=== PATIENT | male | born 1975 | race Caucasian/White ===

== ENCOUNTER 2022-11-06 19:51 | Inpatient (IN) | payer OTHER, SELFPAY ==
--- OUTSIDE RECORDS SUMMARY | 2022-11-06 19:54 | XMS_ITS | Continuity of Care Document ---
:1975 Author Organization [facility] Address [address] [place] [address]- Care Team Providers Name Role Phone Not on Staff, PCP Primary Care Physician Unavailable [place] [facility] [place]/22 [facility] [address] [place] [address]- Encounter Diagnosis Ingestion of unknown drug (Final) - 07/23/22 Suicide attempt (Final) - 07/23/22 Ingestion of unknown drug (Final) - 07/25/22 Suicide attempt (Final) - 07/25/22 Discharge Disposition: Transfer to [facility] Facility Attending Physician: Judy Carvajal MD Admitting Physician: Masood Solares MD Referring Physician: Not on Staff, Referring MD Allergies, Adverse Reactions, Alerts Substance Reaction Severity Status amoxicillin Active sulfADIAZINE Active Medications No Known Medications Problem List Condition Effective Dates Status Health Status Informant Major depressive disorder(Confirmed) Active Personality disorder(Confirmed) Active Suicidal behavior with attempted Active self-injury(Confirmed) Results Radiology Reports Exam Date Time Procedure Performing Provider Status 07/30/22 1:37 PM Knee 3 Views Left Alisha Richardson; Gustavo (Veri fied) Notes:(Knee 3 Views Left) Reason For Exam: PainRESULT: Knee 3 Views Left Left knee 3 views dated July 30, 2022. No prior studies are available. HISTORY: Pain. FINDINGS: This examination shows no evidence of fracture or dislocation. Joint spaces are well preserved. No joint effusion is seen. IMPRESSION: Degenerative changes. No evidence of fracture or dislocation. Examination 95[address]. Thank you for allowing me to participate in the care of this patient. WSN: [id number] Ordering Physician: Judy Carvajal Dictated By: Ramiro Moreau MD Dictated Date/Time: 07/30/22 1:49 pm Reviewed By: Ramiro Moreau MD Signed By: Ramiro Mroeau MD Signed Date/Time: 07/30/22 1:49 pm Transcribed By: GOVIND Transcribed Date/Time: 07/30/22 1:49 pm Vital Signs Most recent to oldest [Reference 1 2 3 Range]: Oxygen Saturation [94-100 %] 100 % 95 % 98 % (07/31/22 7:00 AM) (07/31/22 12:27 AM) (07/30/22 8:16 PM) Pulse Rate [55-90 bpm] 103 bpm 56 bpm 64 bpm *H* (07/31/22 12:27 AM) (07/30/22 8:16 P M) (07/31/22 7:00 AM) Blood Pressure [90-138/55-84 mm 143/92 mm Hg 138/89 mm Hg 129/95 mm Hg Hg] *H* (07/31/22 12:27 AM) (07/30/22 8:16 P M) (07/31/22 7:00 AM) Respiratory Rate [16-30 br/min] 18 br/min 18 br/min 20 br/min (07/31/22 7:00 AM) (07/31/22 12:27 AM) (07/30/22 8:16 PM) Temperature [96.8-100.4 DegF] 98.1 DegF 97.4 DegF 97 .9 DegF (07/31/22 7:00 AM) (07/31/22 12:27 AM) (07/30/22 8:16 PM) Mode of Delivery (Oxygen) Room air Room air Room a ir (07/31/22 7:00 AM) (07/31/22 12:27 AM) (07/30/22 8:16 PM) Blood pressure sites Arm, left Arm, right Arm, left (07/31/22 7:00 AM) (07/31/22 12:27 AM) (07/30/22 8:16 PM) Temperature Route Oral Oral Oral (07/31/22 7:00 AM) (07/31/22 12:27 AM) (07/30/22 8:16 PM) Social History Social History Type Response Smoking Status Never (less than 100 in life time) entered on: 09/30/19 Sex Male Note [facility] , CIS S: TRANSCRIBE Ramiro Moreau MD: VERIFY Event Display: Result: Authored Date: [id number] Left knee 3 views dated July 30, 2022. No prior studies are available. HISTORY: Pain. FINDINGS: This examination shows no evidence of fracture or dislocation. Joint spaces are well preserved. No joint effusion is seen. IMPRESSION: Degenerative changes. No evidence of fracture or dislocation. Examination [id number]. Thank you for allowing me to participate in the care of this patient. WSN: [id number] Ordering Physician: Judy Carvajal Dictated By: Ramiro Moreau MD Dictated Date/Time: 07/30/22 1:49 pm Reviewed By: Ramiro Moreau MD Signed By: Ramiro Moreau MD Signed Date/Time: 07/30/22 1:49 pm Transcribed By: GOVIND Transcribed Date/Time: 07/30/22 1:49 pm Care Team PersonnelName: Not on Staff, PCP
--- OUTSIDE RECORDS SUMMARY | 2022-11-06 19:54 | XMS_ITS | Continuity of Care Document ---
:1975 Author Organization [facility] Address [address] [place] [address]- Care Team Providers Name Role Phone Not on Staff, PCP Primary Care Physician Unavailable Encounter [facility] [place] Date(s): 01/07/20 - 01/11/20 [facility] [address] [place] [address]- [facility] Discharge Disposition: A-D/C Home Attending Physician: Carolyn Gaines MD Admitting Physician: Carolyn Gaines MD Referring Physician: Not on Staff, Referring MD Allergies, Adverse Reactions, Alerts Substance Reaction Severity Status amoxicillin Active sulfADIAZINE Active Medications naltrexone 380 mg intramuscular injection, extended release = 380 mg, Intramuscular, Every 28 days, # 1 each, 0 Refills, Maintenance, 01/11/20 11:00:00 EST, Injection, [id number], 172.2, cm, 01/11/20 8:28:00 EST, Height, 79, kg, 01/07/20 7:38:00 EST, Dry Weight Start Date: 01/11/20 Status: Ordered Problem List Condition Effective Dates Status Health Status Informant Major depressive disorder(Confirmed) Active Personality disorder(Confirmed) Active Suicidal behavior with attempted Active self-injury(Confirmed) Vital Signs Most recent to oldest 1 2 3 [Reference Range]: Height 172.2 cm 172.2 cm 172.2 cm (01/11/20 8:28 AM) (01/10/20 8:19 PM) (01/10/20 10: 06 AM) Weight 79 kg (01/07/20 7:38 AM) Oxygen Saturation [94-100 %] 97 % 97 % 95 % (01/11/20 8:28 AM) (01/10/20 8:19 PM) (01/10/20 10: 06 AM) Pulse Rate [55-90 bpm] 71 bpm 67 bpm 69 bpm (01/11/20 8:28 AM) (01/10/20 8:19 PM) (01/10/20 10: 06 AM) Body Mass Index [18.5-24.99] 26.64 *H* (01/07/20 1:00 AM) Blood Pressure [90-138/55-84 145/96 mm Hg 141/89 mm Hg 140 /98 mm Hg mm Hg] *H* *H* *H* (01/11/20 8:28 AM) (01/10/20 8:19 PM) (01/10/20 10: 06 AM) Respiratory Rate [16-30 18 br/min 18 br/min 18 br/mi n br/min] (01/11/20 8:28 AM) (01/11/20 8:28 AM) (01/10/20 8:1 9 PM) Temperature [96.8-100.4 DegF] 98.6 DegF 99.0 DegF 98 .4 DegF (01/11/20 8:28 AM) (01/10/20 10:06 AM) (01/09/20 7: 09 PM) Mode of Delivery (Oxygen) Room air Room air Room a ir (01/11/20 8:28 AM) (01/10/20 8:19 PM) (01/10/20 10: 06 AM) Blood pressure sites Arm, right Arm, left Arm, left (01/11/20 8:28 AM) (01/10/20 8:19 PM) (01/10/20 10: 06 AM) Temperature Route Oral Oral Oral (01/11/20 8:28 AM) (01/10/20 10:06 AM) (01/09/20 7: 09 PM) Dry Weight 79 kg (01/07/20 7:38 AM) Sensory deficits None (01/07/20 1:00 AM) Mobility assistance Independent (01/07/20 1:00 AM) Social History Social History Type Response Smoking Status Never (less than 100 in life time) entered on: 09/30/19 Sex Male
--- OUTSIDE RECORDS SUMMARY | 2022-11-06 19:54 | XMS_ITS | Continuity of Care Document ---
:1975 Author Organization [facility] Address [address] [place] [address]- Care Team Providers Name Role Phone Not on Staff, PCP Primary Care Physician Unavailable Encounter [facility] Date(s): 09/29/22 - 09/29/[address] [address]- Encounter Diagnosis Acute leg pain (Final) - 09/29/22 Discharge Disposition: A-D/C AMA Attending Physician: Bob Dempsey DO Admitting Physician: Bob Dempsey DO Referring Physician: Not on Staff, Referring MD Allergies, Adverse Reactions, Alerts Substance Reaction Severity Status amoxicillin Active sulfADIAZINE Active Problem List Condition Confirmation Course Effective Dates Status Health Stat us Informant Major depressive Confirmed Active disorder Personality Confirmed Active disorder Suicidal behavior Confirmed Active with attempted self-injury Vital Signs Most recent to oldest [Reference Range]: 1 Oxygen Saturation [94-100 %] 94 % (09/29/22 8:32 PM) Pulse Rate [55-90 bpm] 109 bpm *H* (09/29/22 8:32 PM) Blood Pressure [90-138/55-84 mm Hg] 125/74 mm Hg (09/29/22 8:32 PM) Respiratory Rate [16-30 br/min] 22 br/min (09/29/22 8:32 PM) Temperature [96.8-100.4 DegF] 99.1 DegF (09/29/22 8:32 PM) Mode of Delivery (Oxygen) Room air (09/29/22 8:32 PM) Blood pressure sites Arm, right (09/29/22 8:32 PM) Temperature Route Oral (09/29/22 8:32 PM) Social History Social History Type Response Smoking Status Never (less than 100 in life time) entered on: 09/30/19 Sex Patient Care team information PersonnelName: Not on Staff, PCP
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
[2022-11-06 20:25] VITALS: BP 136/87; PULSE 65; TEMP 36.3
[2022-11-06 21:42] VITALS: BMI 24.6
[2022-11-06] MEDS: Gabapentin 300 MG CAPSULE PO (23:57)
[2022-11-06] MEDS: LORazepam 1 MG TABLET PO (23:57)
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
[2022-11-07 06:00] VITALS: BP 131/79; PULSE 59; RESP 14; TEMP 36.5; O2SAT 96
[2022-11-07] MEDS: Thiamine HCL 100 MG TABLET PO (08:47)
[2022-11-07] MEDS: Folic Acid 1 MG TABLET PO (08:47)
[2022-11-07] MEDS: Multivitamin TABLET 1 TAB PO (08:47)
--- NOTE | 2022-11-07 12:27 | P.CNHOSGPS_ITS ---
History of Present Illness Data of Consult Service Date: 11/07/22 Primary Care Provider: Unknown Physician HPI Reason for consult: Admission H&P Pt is a 47-year-old male with a PMH significant for anxiety, depression, and being diagnosed with COVID 3 weeks ago he has been seen for an admission history and physical. Patient has no chronic conditions for which he takes medication. Patient denies chest pain/pressure, SOB. No F/C, N/V, abdominal pain. No acute medical concerns at this time. Review of Systems Review of Systems: No fever, chills No nausea, vomiting No chest pain/pressure No SOB Yes all other systems are reviewed and are negative PMFSH Social History (Updated 11/07/22 @ 12:40 by GINO Doan) Household Members: None Housing: Other Housing Other:: Pt was living in hot in [place]; can't return. Patient Tobacco Use Status: Never used Tobacco Second Hand Smoke Exposure: Yes (at times) Use of substances other than those prescribed or required for medical reasons: No Currently Displaying Signs/Symptoms of Drug Intoxication Withdrawal: No Any prior treatment program specific to substance use: No Have you been hit, kicked, punched, or otherwise hurt by someone within the past year? If so, by whom?: No Do you feel safe in your current relationship?: No Current Relationship Is there a partner from a previous relationship who is making you feel unsafe now?: No Are you made to feel afraid or neglected: No Spiritual Healthcare Practices: None Gnosticism Healthcare Practices: None Cultural Healthcare Practices: None Advance Directives: No Advance Directives Information Provided: No Do you have thoughts of harming others: None Do you have a plan to hurt others: No Plan Recently lost weight without trying: Yes How much weight loss: 24-33 pounds Eating poorly because of decreased appetite: Yes Nutrition screen score: 6 Nutrition Risks: Poor intake 0-25% >4 days Poor oral hygiene: No Meds Allergies Allergy/AdvReac Type Severity Reaction Status Date / Time amoxicillin Allergy Anaphylaxis Verified 11/06/22 21:44 Sulfa (Sulfonamide Allergy Anaphylaxis Verified 11/06/22 21:45 Antibiotics) Active Medications: Current Medications Al Hydroxide/Mg Hydroxide (Magnesium Hydrox/Alum Hydrox 30 Ml Oral.Susp) 30 ml PO Q6H PRN PRN Reason: Heartburn/Nausea Folic Acid (Folic Acid 1 Mg Tablet) 1 mg PO DAILY [facility] Last Admin: 11/07/22 08:47 Dose: 1 mg Gabapentin (Gabapentin 300 Mg Capsule) 300 mg PO TID [facility]EN Stop: 11/08/22 23:00 Last Admin: 11/07/22 09:09 Dose: Not Given Gabapentin (Gabapentin 300 Mg Capsule) 300 mg PO BID [facility] Hydroxyzine HCl (Hydroxyzine Hcl 25 Mg Tablet) 25 mg PO Q6H PRN PRN Reason: Anxiety Lorazepam (Lorazepam 1 Mg Tablet) 1 mg PO Q2H PRN PRN Reason: CIWA 6-10 Lorazepam (Lorazepam 1 Mg Tablet) 2 mg PO Q2H PRN PRN Reason: CIWA 11 and above Magnesium Hydroxide (Milk Of Magnesia 30 Ml Oral.Susp) 30 ml PO DAILY PRN PRN Reason: Constipation Multivitamins/Vitamin C (Multivitamin Tablet) 1 tab PO DAILY [facility] Last Admin: 11/07/22 08:47 Dose: 1 tab Olanzapine (Olanzapine 5 Mg Tablet) 5 mg PO TID PRN PRN Reason: agitation Thiamine HCl (Thiamine Hcl 100 Mg Tablet) 100 mg PO DAILY [facility] Last Admin: 11/07/22 08:47 Dose: 100 mg Trazodone HCl (Trazodone Hcl 50 Mg Tablet) 50 mg PO BEDTIME PRN PRN Reason: Insomnia Home Medications Medication Instructions Recorded Confirmed Last Taken Type No Known Home Meds 11/06/22 11/06/22 Unknown History Assessment and Plan (1) Routine history and physical examination of adult: Status: Acute Plan Pt is a 47-year-old male with a PMH significant for anxiety, depression, and being diagnosed with COVID 3 weeks ago he has been seen for an admission history and physical. Patient has no chronic conditions for which he takes medication. There are no acute medical concerns at this time. Thank you for allowing me to participate in the care of this patient. Please let me know if there are any medical questions in the future. Time Spent With Patient Time: Total time managing care of this patient today ____ minutes. Physical Exam Vital Signs: Last Vital Signs Temp 97.7 F 11/07/22 06:00 Pulse 59 11/07/22 06:00 Resp 14 11/07/22 06:00 BP 131/79 11/07/22 06:00 Pulse Ox 96 11/07/22 06:00 O2 Del Method 11/07/22 06:00 BMI result Body Mass Index 24.6 Constitutional: Alert, in no acute distress. Mental Status: Oriented to person, place and time. Eyes: Pupils are equal, round, and reactive to light. Ear, Nose, and Throat: Oropharynx clear, mucous membranes moist. Ears and nose without deformities. Trachea midline. Respiratory: Clear to auscultation bilaterally. No wheezing, rales, or rhonchi. Cardiovascular: S1, S2 regular. No murmurs, rubs, or gallops. Gastrointestinal: Abdomen soft, non-tender, non-distended. NOrmal bowel sounds. Neurologic: Cranial nerves II-XI are grossly intact. NO focal neurological deficits. Moves all extremities spontaneously. Skin: No rashes of lesions. Musculoskeletal: No cyanosis or clubbing. Extremities: No edema. Psychiatric: Cooperative and flat affect. Neuro Cranial nerves: Yes CN's II-XII intact bilaterally
[2022-11-07 13:15] VITALS: BP 117/62; PULSE 94; RESP 16; TEMP 36.6; O2SAT 94
[2022-11-07 14:19] VITALS: BP 119/76; PULSE 109
[2022-11-07] MEDS: guaiFENesin DM 600/30 1 TAB TAB.ER.12H PO ×2 (14:34→19:19)
[2022-11-07] MEDS: LORazepam 0.5 MG TABLET PO (14:34)
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
[2022-11-07 18:00] VITALS: BP 128/79; PULSE 80; RESP 16; TEMP 36.3; O2SAT 97
[2022-11-08 06:00] VITALS: BP 122/60; PULSE 52; RESP 14; TEMP 36.8; O2SAT 97
[2022-11-08] MEDS: Folic Acid 1 MG TABLET PO (08:40)
[2022-11-08] MEDS: Multivitamin TABLET 1 TAB PO (08:40)
[2022-11-08] MEDS: Thiamine HCL 100 MG TABLET PO (08:40)
[2022-11-08] MEDS: guaiFENesin DM 600/30 1 TAB TAB.ER.12H PO (11:43)
[2022-11-08] MEDS: LORazepam 0.5 MG TABLET PO (12:56)
--- NOTE | 2022-11-08 14:39 | MHC.CLN ---
NUTRITION CONSULT FOR POOR INTAKE AND REPORTED WEIGHT LOSS. PATIENT REPORTS WEIGHT LOSS DUE TO DID NOT FEEL LIKE EATING . CONTINUES WITH POOR INTAKE ON UNIT. AGREES TO ENSURE TID. PROVIDES ADDITIONAL [address] AVAILABLE NEEDED BY CONSULT.
[2022-11-08 18:00] VITALS: BP 140/87; PULSE 70; RESP 16; TEMP 36.6; O2SAT 98
--- NOTE | 2022-11-08 19:04 | HO.PSYCHPN ---
Subjective Subjective Date of Service: 11/08/22 Reason For Visit: Depression Subjective Notes: Conditional Voluntary Healthcare Proxy: No Guardianship: No Medical Problems Affecting Mental Status: No Interim History: Pt working with team on placement options. Requests Eucerin/Cortisone creams for facial dryness. Declines psychopharmacology at this time. Medication Compliance: Yes Side effects from medications: No Attending Groups: Intermittent Review of Systems Acute medical concerns: No Medical Review of Systems: unchanged Mental Status Exam Mental Status Exam Patient Appearance: Appropriate Patient Orientation: Person, Place, Time and Situation Level of Consciousness: Alert Patient Behavior: Talkative and Good Eye Contact Mood Description: Constricted Affect Description: Constricted Patient Cognition Impaired: No Ability to Follow Directions: Good Speech Pattern: Spontaneous Speech Memory Description: Intact Hallucinations: None Delusions: Not Present Perceptual Disturbances: Depersonalization and Derealization Thought Process: Distracted Thought Content: positive for Suicidal Ideation Depressive Symptoms: Unhappiness and Thoughts of /Suicide Judgement: Good Diagnostics Vital Signs (24Hr): Vital Signs - 24 hr 11/08/22 06:00 Temperature 98.3 F Pulse Rate 52 Respiratory Rate 14 Blood Pressure 122/60 Pulse Oximetry 97 Oxygen Delivery Method Room Air BMI result Body Mass Index 24.6 Medications Medications Current Medications Acetaminophen (Acetaminophen 325 Mg Tablet) 650 mg PO Q4H PRN PRN Reason: Pain, Mild (Pain Scale 1-3) Al Hydroxide/Mg Hydroxide (Magnesium Hydrox/Alum Hydrox 30 Ml Oral.Susp) 30 ml PO Q6H PRN PRN Reason: Heartburn/Nausea Folic Acid (Folic Acid 1 Mg Tablet) 1 mg PO DAILY RAVEN Last Admin: 11/08/22 08:40 Dose: 1 mg Guaifenesin/Dextromethorphan (Guaifenesin Dm 600/30 1 Tab Tab.Er.12h) 1 tab PO BID PRN PRN Reason: cough/congestion Last Admin: 11/08/22 11:43 Dose: 1 tab Hydrocortisone (Hydrocortisone 1 % Cream 28.35 Gm Tube) 1 appl TOPICAL DAILY PRN; Protocol PRN Reason: facial rash Hydroxyzine HCl (Hydroxyzine Hcl 25 Mg Tablet) 25 mg PO Q6H PRN PRN Reason: Anxiety Magnesium Hydroxide (Milk Of Magnesia 30 Ml Oral.Susp) 30 ml PO DAILY PRN PRN Reason: Constipation Multi-Ingred Cream/Lotion/Oil/Oint (Mineral Oil/Petrolatum,White 106 Gm Tube) 1 appl TOPICAL TID RAVEN; Protocol Last Admin: 11/08/22 14:15 Dose: Not Given Multivitamins/Vitamin C (Multivitamin Tablet) 1 tab PO DAILY RAVEN Last Admin: 11/08/22 08:40 Dose: 1 tab Olanzapine (Olanzapine 5 Mg Tablet) 5 mg PO TID PRN PRN Reason: agitation Thiamine HCl (Thiamine Hcl 100 Mg Tablet) 100 mg PO DAILY RAVEN Last Admin: 11/08/22 08:40 Dose: 100 mg Trazodone HCl (Trazodone Hcl 50 Mg Tablet) 50 mg PO BEDTIME PRN PRN Reason: Insomnia Allergies Allergies Allergy/AdvReac Type Severity Reaction Status Date / Time amoxicillin Allergy Anaphylaxis Verified 11/06/22 21:44 Sulfa (Sulfonamide Allergy Anaphylaxis Verified 11/06/22 21:45 Antibiotics) Assessment & Plan Assessment & Plan (1) Alcohol use disorder, severe, dependence: Status: Acute Code(s): F10.20 - Alcohol dependence, uncomplicated (2) Recurrent major depression-severe: Status: Acute Code(s): F33.2 - Major depressive disorder, recurrent severe without psychotic features Plan 47 yo male with alcohol use disorder and recurrent major depression. Recent discharge after initiating ECT due to COVID. Pt declines ECT consult to re-establish his plan. 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 Plan: Continue current regime-pt not wanting to trial any new medications. 11/08/22: Placement search per pt request I spent minutes with the patient and/or on the patient floor today, greater than?50% of which was spent counseling/coordinating care. Patient educated on: medication risk/benefits and therapeutic strategies Informed Consent: understands Reason for contiued inpatient stay Substantial Risk for: harm to self, inability to function and rapid decompensation Time Spent With Patient Time: Total time managing care of this patient today __20__ minutes.
[2022-11-09 06:00] VITALS: BP 113/67; PULSE 55; TEMP 36.8; O2SAT 96
--- NOTE | 2022-11-09 10:34 | HO.PSYCHPN ---
Subjective Subjective Date of Service: 11/09/22 Reason For Visit: Depression Interim History: pt reports feeling irritable due to acuity on unit and roommate noisiness and disrespect. Reviewed med hx and he's sure he's tried everything for depression and anxiety it's either caused side-effects or not worked. He asks for Ativan prn and says only while i'm on the unit here...i don't want a prescription. Pt understands it will not be continued on discharge. Mental Status Exam Mental Status Exam Narrative: Pt is alert and oriented; behavior is cooperative, irritable but calm; patient is not in distress; dressed in casual attire, neatly groomed good hygiene; mood is described as anxious and affect congruent; eye contact appropriate; Speech is normal rate, volume and prosody and not pressured; no psychomotor agitation/retardation present; thought process is organized and goal directed; Thought content is on tx; otherwise pertinent to relevant topics and without any delusional content, paranoid ideations or grandiosity; denies any SI/HI. There is no evidence of perceptual disturbance. Patients insight and judgment appear intact. Diagnostics Vital Signs (24Hr): Vital Signs - 24 hr 11/08/22 18:00 11/09/22 06:00 Temperature 97.8 F 98.2 F Pulse Rate 70 55 Respiratory Rate 16 Blood Pressure 140/87 H 113/67 Pulse Oximetry 98 96 Oxygen Delivery Method Room Air Room Air BMI result Body Mass Index 24.6 Medications Medications Current Medications Acetaminophen (Acetaminophen 325 Mg Tablet) 650 mg PO Q4H PRN PRN Reason: Pain, Mild (Pain Scale 1-3) Al Hydroxide/Mg Hydroxide (Magnesium Hydrox/Alum Hydrox 30 Ml Oral.Susp) 30 ml PO Q6H PRN PRN Reason: Heartburn/Nausea Folic Acid (Folic Acid 1 Mg Tablet) 1 mg PO DAILY RAVEN Last Admin: 11/09/22 09:28 Dose: Not Given Guaifenesin/Dextromethorphan (Guaifenesin Dm 600/30 1 Tab Tab.Er.12h) 1 tab PO BID PRN PRN Reason: cough/congestion Last Admin: 11/08/22 11:43 Dose: 1 tab Hydrocortisone (Hydrocortisone 1 % Cream 28.35 Gm Tube) 1 appl TOPICAL DAILY PRN; Protocol PRN Reason: facial rash Hydroxyzine HCl (Hydroxyzine Hcl 25 Mg Tablet) 25 mg PO Q6H PRN PRN Reason: Anxiety Magnesium Hydroxide (Milk Of Magnesia 30 Ml Oral.Susp) 30 ml PO DAILY PRN PRN Reason: Constipation Multi-Ingred Cream/Lotion/Oil/Oint (Mineral Oil/Petrolatum,White 106 Gm Tube) 1 appl TOPICAL TID RAVEN; Protocol Last Admin: 11/09/22 09:28 Dose: Not Given Multivitamins/Vitamin C (Multivitamin Tablet) 1 tab PO DAILY RAVEN Last Admin: 11/09/22 09:28 Dose: Not Given Olanzapine (Olanzapine 5 Mg Tablet) 5 mg PO TID PRN PRN Reason: agitation Thiamine HCl (Thiamine Hcl 100 Mg Tablet) 100 mg PO DAILY RAVEN Last Admin: 11/09/22 09:28 Dose: Not Given Trazodone HCl (Trazodone Hcl 50 Mg Tablet) 50 mg PO BEDTIME PRN PRN Reason: Insomnia Allergies Allergies Allergy/AdvReac Type Severity Reaction Status Date / Time amoxicillin Allergy Anaphylaxis Verified 11/06/22 21:44 Sulfa (Sulfonamide Allergy Anaphylaxis Verified 11/06/22 21:45 Antibiotics) Assessment & Plan Assessment & Plan (1) Alcohol use disorder, severe, dependence: Status: Acute Code(s): F10.20 - Alcohol dependence, uncomplicated (2) Recurrent major depression-severe: Status: Acute Code(s): F33.2 - Major depressive disorder, recurrent severe without psychotic features Plan 47 yo male with alcohol use disorder and recurrent major depression. Recent discharge after initiating ECT due to COVID. Pt declines ECT consult to re-establish his plan. 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 Plan: Continue current regime-pt not wanting to trial any new medications. 11/08/22: Placement search per pt request 11/09/22: restart ativan prn; pt understands will not be continued on discharge I spent minutes with the patient and/or on the patient floor today, greater than?50% of which was spent counseling/coordinating care. Patient educated on: diagnosis and medication risk/benefits Informed Consent: understands Reason for contiued inpatient stay Substantial Risk for: stable for discharge Time Spent With Patient Time: Total time managing care of this patient today ____ minutes.
[2022-11-09] MEDS: LORazepam 0.5 MG TABLET PO ×2 (12:19→17:31)
[2022-11-09] MEDS: guaiFENesin DM 600/30 1 TAB TAB.ER.12H PO (12:20)
[2022-11-09] MEDS: Hydrocortisone 1 % Cream 28.35 GM TUBE 1 APPL TOPICAL (17:31)
[2022-11-09 18:50] VITALS: RESP 16
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
[2022-11-10] MEDS: LORazepam 0.5 MG TABLET PO (10:11)
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
[2022-11-10] MEDS: Hydrocortisone 1 % Cream 28.35 GM TUBE 1 APPL TOPICAL (13:12)
== END 2022-11-10 13:37 | disposition home or self-care (01) | DRG 751 ==
PROVIDERS: Admitting Provider Psychiatry & Neurology Psychiatry; Visit Provider Clinical Nurse Specialist Psychiatric/Mental Health, Adult
DX: F33.2 Major depressive disorder, recurrent severe without psychotic features (principal); R45.851 Suicidal ideations; F10.20 Alcohol dependence, uncomplicated; Z86.16 Personal history of COVID-19; Z88.0 Allergy status to penicillin; Z88.2 Allergy status to sulfonamides

== ENCOUNTER 2024-04-10 21:28 | Emergency (ER) | payer OTHER, SELFPAY ==
--- NOTE | 2024-04-10 | ECG_ITS ---
Test Reason : CHEST PAIN Blood Pressure : / mmHG Vent. Rate : 076 BPM Atrial Rate : 076 BPM P-R Int : 156 ms QRS Dur : 096 ms QT Int : 384 ms P-R-T Axes : 030 -32 032 degrees QTc Int : 432 ms Normal sinus rhythm Left axis deviation Abnormal ECG When compared with ECG of 04-SEP-2012 04:12, No significant change was found Referred By: Generic ED Physician Electronically Signed By:ANNALISA CHARLES MD
--- NOTE | ~2024-04-10 | XR_ITS ---
EXAMINATION: XR CHEST CLINICAL INFORMATION: Chest pain. COMPARISON: 09/04/2012 TECHNIQUE: Frontal view of the chest was obtained. FINDINGS: No significant abnormality is noted involving the heart, lungs, mediastinum, bony thorax or soft tissues. XR/XR chest 1V IMPRESSION: Unremarkable examination.
[2024-04-10 21:40] VITALS: BP 136/82; PULSE 84; O2SAT 96
[2024-04-10 21:49] VITALS: BP 109/70; PULSE 76; RESP 17; TEMP 36.6; O2SAT 94; BMI 27.2
[2024-04-10 21:56] LABS: MANUAL DIFF FLAG NO
--- NOTE | 2024-04-10 21:59 | ED.CHESTPAIN ---
HPI - Chest Pain General Chief Complaint: Chest Pain Stated Complaint: Chest pain Time Seen by Provider: 04/10/24 21:48 History of Present Illness HPI narrative: Patient is 48 years old sign out against medical advice from [facility] earlier today. Now is complaining of chest pain. Patient claims the chest pain has been ongoing for the last few days. It is mid chest. It radiates to the right and the left side. Patient denies any fever chills. No coughing or congestion. Denies any diaphoresis. Admits to drinking alcohol on a regular basis. Admits to drinking alcohol today. Patient denies any history of diabetes, hypertension, high cholesterol, smoking. His father had a heart attack in in his 30s. MD complaint: chest pain Related Data Home Medications ?Medication ?Instructions ?Recorded ?Confirmed No Known Home Meds 11/06/22 11/06/22 Allergies Allergy/AdvReac Type Severity Reaction Status Date / Time amoxicillin Allergy Anaphylaxis Verified 04/10/24 21:52 Sulfa (Sulfonamide Allergy Anaphylaxis Verified 04/10/24 21:52 Antibiotics) Review of Systems Review of Systems: Yes all other systems are reviewed and are negative [facility] Past Medical History Attestation statement: The following information was validated with the patient. Medical History Recurrent major depression-severe Alcohol use disorder, severe, dependence Social History Social History Household Members: None Housing: Other Housing Other:: Pt was living in [facility] in [place]; can't return. Alcohol intake: current Alcohol type: hard liquor Patient Tobacco Use Status: Never used Tobacco Smoked in Last 30 Days: No Second Hand Smoke Exposure: Yes (at times) Use of substances other than those prescribed or required for medical reasons: No Advance Directives: No Advance Directives Information Provided: Yes Do you have a plan to hurt others: No Plan service: Yes ([employer] - discharged in 2008 after 11 months.) Sexual orientation: Don't Know Physical Exam Vital Signs: Vital Signs: Last Vital Signs Temp 97.9 F 04/11/24 01:49 Pulse 77 04/11/24 01:49 Resp 16 04/11/24 01:49 BP 101/61 04/11/24 01:49 Pulse Ox 95 04/11/24 01:49 O2 Del Method Room Air 04/11/24 01:49 BMI result Body Mass Index 27.2 Appearance: Alert. Oriented X3. No acute distress. Eyes: Pupils equal, round and reactive to light. ENT: Pharynx normal. Neck: Normal inspection. Neck supple. No lymph nodes noted. No crepitus CVS: Normal heart rate and rhythm. Pulses normal. Normal S1 and S2 Respiratory: No respiratory distress. Breath sounds normal. No Wheezing. No rales Abdomen: Soft and nontender. No rigidity. No distention. good BS x4 Skin: Skin warm and dry. Normal skin color. Normal skin turgor. Extremities: No lower extremity edema. Neurovascular intact to all extremities. No Lacerations. No Rash Neuro: Oriented X 3. No motor deficit. No sensory deficit. Moving all extermities. No slurred speech Medications Administered Discontinued Medications Generic Name Dose Route Start Last Admin Trade Name Freq PRN Reason Stop Dose Admin Aspirin 324 mg 04/10/24 22:03 04/10/24 22:34 Aspirin 81 Mg Tab.Chew PO 04/10/24 22:04 Not Given ONCE ONE Medical Decision Making Medical Decision Making [facility] Narrative: Two sets of enzymes are negative. Patient's old records obtained from [facility]. Had a CTA head and neck done it was grossly negative. Patient's chest pain is atypical. It is mid chest not associated with shortness of breath there is no diaphoresis. Patient's troponin x2 sets were negative. Patient's EKG knots anonymous with ACS. Patient's heart score is a 3 based on risk factors. Will have patient follow-up on an outpatient basis. Patient's grossly intoxicated alcohol over 200. Currently awaiting clinical sobriety Differential Diagnosis Differential Diagnoses: The differential diagnosis associated with the presentation includes Alcohol intoxication, chest pain Admission/Observation Consideration of admission/observation: Escalation of care including admission/observation considered Lab Data [facility] Lab Attestation statement: I reviewed the patient's lab results. 04/10/24 21:52 04/10/24 21:52 Labs: Lab Results 04/10/24 04/11/24 Range/Units 21:52 00:48 WBC 6.1 (4.8-10.8) X10*3/uL RBC 5.00 (4.60-5.80) X10*6/uL Hgb 14.8 (14.0-18.0) g/dl Hct 42.7 (42.0-52.0) % MCV 85.4 (80.0-98.0) fL MCH 29.6 (27.0-33.0) pg MCHC 34.7 (31.0-36.0) g/dl RDW 13.7 (11.0-16.0) % Plt Count 286 (160-400) X10*3/uL MPV 10.2 (9.4-12.4) fL Immature Gran % (Auto) 0.2 (0.0-0.4) % Neut % (Auto) 53.0 (45-73) % Lymph % (Auto) 36.3 (20-40) % [place] % (Auto) 7.4 (2-11) % Eos % (Auto) 2.6 (0-4) % Baso % (Auto) 0.5 (0-2) % Lymph # (Auto) 2.2 (1.2-4.9) X10*3/uL [place] # (Auto) 0.5 (0.1-1.2) X10*3/uL Eos # (Auto) 0.2 (0.0-0.4) X10*3/uL Baso # (Auto) 0.0 (0.0-0.2) X10*3/uL Abs Immat Gran (auto) 0.01 (0.00-0.03) X10*3/uL Absolute Neuts (auto) 3.2 (2.0-8.3) x10*3/uL Absolute Nucleated RBC 0.000 (0.0-0.012) X10*3/uL Nucleated RBC % (auto) 0.0 (0.0-0.2) /100WBC Sodium 144 (135-145) mmol/L Potassium 3.7 (3.3-5.1) mmol/L Chloride 108 (96-108) mmol/L Carbon Dioxide 22 (22-29) mmol/L Anion Gap 18 (12-20) BUN 11 (9-16) mg/dL Creatinine 1.11 (0.5-1.4) mg/dL Estim Creat Clear Calc 80.4 Estimated GFR > 60 Random Glucose 107 (60-115) mg/dL Calcium 8.6 (8.4-10.2) mg/dL Magnesium 2.3 (1.6-2.6) mg/dL Total Bilirubin 0.3 (0.0-1.0) mg/dL AST 30 (5-37) U/L ALT 32 (0-40) U/L Alkaline Phosphatase 97 (39-117) U/L Troponin I High Sens < 2.7 < 2.7 (<3.5-35.0) ng/L Total Protein 7.6 (6.5-8.0) g/dL Albumin 4.6 (3.5-5.0) g/dL Ethyl Alcohol 269 mg/dL Independent Interpretation I performed an independent interpretation of an: EKG (Sinus heart rate is 70 MT QRS QTC normal no acute ST segment elevation) and Plain X-Ray (Patient's chest x-ray grossly negative.) Radiology Impression Discussion of test interpretation with radiology: I have reviewed the radiologist's reading. External Record Review External record reviewed: Inpatient record (From [facility] reviewed) Chronic Conditions Patient?s care impacted by: Hypertension Discharge Plan Discharge Clinical Impression: Chest pain Patient Disposition: Home, Self-Care Instructions: Chest Pain (DC) Additional Instructions: Please follow-up with cardiology. Please stop using alcohol. Prescriptions: No Action No Known Home Meds Referrals: Felipe Anderson MD [Physician] - 04/13/24 [facility] [Provider Group] Print Language: Turkmen
[2024-04-10 22:03] LABS: Basophils Percent Auto 0.5 % (0-2); Eosinophils Absolute Auto 0.2 X10*3/uL (0.0-0.4); Eosinophils Percent Auto 2.6 % (0-4); Hematocrit 42.7 % (42.0-52.0); Hemoglobin 14.8 g/dl (14.0-18.0); Imm Gran Abs Auto 0.01 X10*3/uL (0.00-0.03); Imm Gran Pct Auto 0.2 % (0.0-0.4); Lymphocytes Absolute Auto 2.2 X10*3/uL (1.2-4.9); Lymphocytes Percent Auto 36.3 % (20-40); Mean Corpuscular HGB Conc 34.7 g/dl (31.0-36.0); Mean Corpuscular Hemoglobin 29.6 pg (27.0-33.0); Mean Corpuscular Volume 85.4 fL (80.0-98.0); Mean Platelet Volume 10.2 fL (9.4-12.4); Monocytes Absolute Auto 0.5 X10*3/uL (0.1-1.2); Monocytes Percent Auto 7.4 % (2-11); Neutrophils Absolute Auto 3.2 x10*3/uL (2.0-8.3); Platelet Count 286 X10*3/uL (160-400); Red Cell Distribution Width 13.7 % (11.0-16.0); White Blood Count 6.1 X10*3/uL (4.8-10.8)
[2024-04-10 22:10] LABS: Ethanol 269 mg/dL
[2024-04-10 22:12] LABS: Alanine Aminotransferase 32 U/L (0-40); Albumin Level 4.6 g/dL (3.5-5.0); Alkaline Phosphatase 97 U/L (39-117); Anion Gap 18 (12-20); Aspartate Amino Transferase 30 U/L (5-37); Bilirubin Total 0.3 mg/dL (0.0-1.0); Blood Urea Nitrogen 11 mg/dL (9-16); Calcium 8.6 mg/dL (8.4-10.2); Carbon Dioxide 22 mmol/L (22-29); Chloride 108 mmol/L (96-108); Creatinine Clr Calc Pharmacy 80.4; Estimated Glomerular Filt Rate > 60; Glucose Random 107 mg/dL (60-115); Magnesium 2.3 mg/dL (1.6-2.6); Potassium 3.7 mmol/L (3.3-5.1); Sodium 144 mmol/L (135-145); Total Protein 7.6 g/dL (6.5-8.0)
[2024-04-10 22:24] LABS: Troponin-I High Sensitivity < 2.7 ng/L (<3.5-35.0)
--- NOTE | 2024-04-10 22:34 | PC.NURSE ---
Patient stated he got aspirin earlier today at previous hospital and by [facility] on his was here, refused dose here. Provider made aware.
[2024-04-10 23:33] VITALS: BP 115/68; PULSE 77; RESP 16; TEMP 36.7; O2SAT 94
--- NOTE | 2024-04-10 23:34 | MHC.EDTECH ---
This tech took over care of patient at 2300,hourly rounds and vitals completed,patient is attempting to give a urine sample at this time.
[2024-04-11 01:28] LABS: Troponin-I High Sensitivity < 2.7 ng/L (<3.5-35.0)
[2024-04-11 01:49] VITALS: BP 101/61; PULSE 77; RESP 16; TEMP 36.6; O2SAT 95
--- NOTE | 2024-04-11 03:16 | PC.NURSE ---
Assumed care of pt.
[2024-04-11 03:42] VITALS: BP 118/65; PULSE 81; RESP 16; TEMP 36.6; O2SAT 94
[2024-04-11 06:20] VITALS: BP 119/70; PULSE 70; RESP 14; TEMP 36.7; O2SAT 94
[2024-04-11 06:31] VITALS: BP 125/75; PULSE 70; RESP 14; TEMP 36.7; O2SAT 95
== END 2024-04-11 06:32 | disposition home or self-care (01) ==
PROVIDERS: Emergency Provider Emergency Medicine Emergency Medical Services
DX: R07.9 Chest pain, unspecified (principal); F10.90 Alcohol use, unspecified, uncomplicated; Y90.8 Blood alcohol level of 240 mg/100 ml or more
CPT/HCPCS: 36415; 71045; 80053; 80307; 83735; 84484; 85025; 93005; 99283; 99285

== ENCOUNTER → 2024-04-10 21:38 | Outpatient (BNV) | payer OTHER, SELFPAY | PROVIDERS: Emergency Provider Emergency Medicine Emergency Medical Services; Visit Provider Internal Medicine Cardiovascular Disease | DX: R94.31 Abnormal electrocardiogram [ECG] [EKG] (principal) | CPT/HCPCS: 93010 ==

== ENCOUNTER 2025-02-19 10:21 | Emergency (ER) | payer OTHER, SELFPAY ==
--- NOTE | ~2025-02-19 | US_ITS ---
CLINICAL HISTORY: IV infiltration? Phlebitis fluid collection Venous duplex ultrasound right upper extremity COMPARISON: None FINDINGS: Accessible deep venous segments are fully compressible with normal Doppler color flow and spectral tracings. IMPRESSION: 1. Negative for right upper extremity deep vein thrombosis. This document has been electronically signed by: Misael Maldonado MD on 02/19/2025 16:21:42
[2025-02-19 10:26] VITALS: BP 135/83; PULSE 51; RESP 14; TEMP 36.7; O2SAT 99; BMI 27.4
--- NOTE | 2025-02-19 10:30 | ED.EXTPRO ---
HPI - Extremity Problem General Chief complaint: Extremity Injury, Upper Stated complaint: RT ARM PAIN Time Seen by Provider: 02/19/25 10:27 Source: patient Mode of arrival: EMS Limitations: no limitations History of Present Illness ED Provider: HPI Narrative: Patient was in the hospital yesterday and had IV line placed in the right came from [facility] as still having the pain at the site of the IV line which was infiltrated Related Data Home Medications ?Medication ?Instructions ?Recorded ?Confirmed No Known Home Meds 11/06/22 11/06/22 Allergies Allergy/AdvReac Type Severity Reaction Status Date / Time amoxicillin Allergy Anaphylaxis Verified 02/19/25 10:27 Sulfa (Sulfonamide Allergy Anaphylaxis Verified 02/19/25 10:27 Antibiotics) Review of Systems Review of Systems: Yes all other systems are reviewed and are negative [facility] Past Medical History Medical History Recurrent major depression-severe Alcohol use disorder, severe, dependence Social History Social History Household Members: None Housing: Other Housing Other:: Pt was living in [facility] in [place]; can't return. Alcohol intake: current Alcohol type: hard liquor Patient Tobacco Use Status: Never used Tobacco Second Hand Smoke Exposure: Yes (at times) Advance Directives: No Advance Directives Information Provided: Yes Do you have a plan to hurt others: No Plan service: Yes ([employer] - discharged in 2008 after 11 months.) Sexual orientation: Don't Know Physical Exam Vital Signs: Vital Signs: Last Vital Signs Temp 98.0 F 02/19/25 13:03 Pulse 51 02/19/25 13:03 Resp 14 02/19/25 13:03 BP 135/83 02/19/25 13:03 Pulse Ox 99 02/19/25 13:03 O2 Del Method Room Air 02/19/25 13:03 BMI result Body Mass Index 27.4 Appearance: Alert. Oriented X3. No acute distress. Eyes: no pallor or icterus ENT: Pharynx normal. Oral Mucosa moist Neck: Normal inspection. Neck supple. CVS: Normal heart rate and rhythm. Pulses normal. Respiratory: No respiratory distress. Equal air entry bilateral, no wheezing/rales/rhonchi Abd: soft, not tender Skin: Skin warm and dry. Normal skin color. Normal skin turgor. Extremities: Right arm slight swelling of the soft tissue neurovascular intact Neuro: Oriented X 3. Medications Administered Discontinued Medications Generic Name Dose Route Start Last Admin Trade Name Sourav PRN Reason Stop Dose Admin Ibuprofen 600 mg 02/19/25 11:29 02/19/25 12:00 Ibuprofen 600 Mg Tablet PO 02/19/25 11:30 600 mg ONCE ONE Administration Medical Decision Making Medical Decision Making [facility] Narrative: Patient with soft tissue swelling of the right arm after IV infiltration ultrasound negative for DVT will discharge patient back advised to use hot pack and ibuprofen for pain Independent Interpretation I performed an independent interpretation of an: Ultrasound Radiology Impression Discussion of test interpretation with radiology: I have reviewed the radiologist's reading. Radiologist Impression: FINDINGS: Accessible deep venous segments are fully compressible with normal Doppler color flow and spectral tracings. IMPRESSION: 1. Negative for right upper extremity deep vein thrombosis. This document has been electronically signed by: Misael Maldonado MD on 02/19/2025 16:21:42 Discharge Plan Discharge Clinical Impression: Localized swelling of right upper extremity Patient Disposition: Home, Self-Care Instructions: Musculoskeletal Pain (ED) Additional Instructions: Your pain in the right arm is from infiltration of the IV fluids No blood clots were seen Use hot pads and keep moving your right arm Prescriptions: No Action No Known Home Meds Interventions: ED Discharge Assessment Last Done: 02/19/25 13:03 Discharge Date/Time: 02/19/25 13:03 Print Language: Grenadian
[2025-02-19] MEDS: Ibuprofen 600 MG TABLET PO (12:00)
[2025-02-19 13:03] VITALS: BP 135/83; PULSE 51; RESP 14; TEMP 36.7; O2SAT 99
== END 2025-02-19 13:03 | disposition home or self-care (01) ==
PROVIDERS: Emergency Provider Internal Medicine; PCP Neurological Surgery
DX: R60.0 Localized edema (principal)
CPT/HCPCS: 93971; 99284

== ENCOUNTER → 2025-02-19 10:30 | Outpatient (BNV) | payer OTHER, SELFPAY | PROVIDERS: Emergency Provider Internal Medicine; PCP Neurological Surgery; Visit Provider Radiology Diagnostic Radiology | DX: M79.601 Pain in right arm (principal) | CPT/HCPCS: 93971 ==

== ENCOUNTER → 2025-06-03 14:38 | Outpatient (BNV) | payer OTHER, SELFPAY | PROVIDERS: Visit Provider Radiology Diagnostic Radiology | DX: R07.9 Chest pain, unspecified (principal) | CPT/HCPCS: 71046 ==

== ENCOUNTER 2025-06-03 14:40 | Emergency (ER) | payer OTHER, SELFPAY ==
--- NOTE | 2025-06-03 | ECG_ITS ---
Test Reason : CP Blood Pressure : */* mmHG Vent. Rate : 61 BPM Atrial Rate : 61 BPM P-R Int : 154 ms QRS Dur : 90 ms QT Int : 384 ms P-R-T Axes : 15 -20 51 degrees QTcB Int : 386 ms Normal sinus rhythm Normal ECG When compared with ECG of 03-Jun-2025 14:50, No significant change was found Referred By: Generic ED Physician Electronically Signed By: Jaswinder Humphreys
--- NOTE | ~2025-06-03 | XR_ITS ---
EXAMINATION: XR CHEST CLINICAL INFORMATION: cp/dizziness COMPARISON: Findings the 24. TECHNIQUE: 2 views of the chest were obtained. FINDINGS: The cardiac, hilar, and mediastinal contours are normal. The lungs are clear bilaterally. There is no pneumothorax or pleural effusion. There is no focal osseous or soft tissue abnormality. XR/XR chest 2V IMPRESSION: No active pulmonary disease. Electronically signed by: Giovani Ambriz MD 06/03/2025 03:42 PM EDT
--- NOTE | 2025-06-03 14:43 | ECG_ITS ---
Test Reason : CP Blood Pressure : */* mmHG Vent. Rate : 68 BPM Atrial Rate : 68 BPM P-R Int : 156 ms QRS Dur : 86 ms QT Int : 386 ms P-R-T Axes : 12 -32 39 degrees QTcB Int : 410 ms Poor data quality, interpretation may be adversely affected Normal sinus rhythm Left axis deviation Cannot rule out Anterior infarct , age undetermined Abnormal ECG When compared with ECG of 10-Apr-2024 21:38, No significant change was found Referred By: Generic ED Physician Electronically Signed By: Jaswinder Humphreys
[2025-06-03 14:55] VITALS: BP 151/100; PULSE 70; RESP 16; TEMP 36.6; O2SAT 97; BMI 26.6
--- NOTE | 2025-06-03 15:19 | ED.CHESTPAIN ---
HPI - Chest Pain General Chief Complaint: Chest Pain Stated Complaint: Chest Pain Time Seen by Provider: 06/03/25 16:08 History of Present Illness HPI narrative: Patient is a 49-year-old male presented today with having chest pain that goes from the right chest to the left chest at times. Sometimes goes from the left chest to the arm. It is very sharp. It lasts for a few sec. dense gone away. It is not associated with shortness of breath he does feel weak he has feels dizzy that is generalized. Has a history of chronic fatigue syndrome. Patient has a family history coronary artery disease. Father had a stroke in the 30s. Had a heart attack in the 40s. No history of diabetes. No history of hypertension. No history of smoking. No history of CA. no history of travel. No leg swelling. No leg pain. Patient from home. Related Data Home Medications ?Medication ?Instructions ?Recorded ?Confirmed No Known Home Meds 11/06/22 11/06/22 Allergies Allergy/AdvReac Type Severity Reaction Status Date / Time amoxicillin Allergy Anaphylaxis Verified 06/03/25 14:56 Sulfa (Sulfonamide Allergy Anaphylaxis Verified 06/03/25 14:56 Antibiotics) Review of Systems Review of Systems: Positive chest pain Yes all other systems are reviewed and are negative PMFSH Past Medical History Attestation statement: The following information was validated with the patient. Medical History Recurrent major depression-severe Alcohol use disorder, severe, dependence Social History Social History Household Members: None Housing: Other Housing Other:: Pt was living in [facility] in [place]; can't return. Alcohol intake: current Alcohol type: hard liquor Patient Tobacco Use Status: Never used Tobacco Second Hand Smoke Exposure: Yes (at times) Advance Directives: No Advance Directives Information Provided: No Do you have a plan to hurt others: No Plan service: Yes ([employer] - discharged in 2008 after 11 months.) Sexual orientation: Don't Know Physical Exam Vital Signs: Vital Signs: Last Vital Signs Temp 97.9 F 06/03/25 14:55 Pulse 70 06/03/25 14:55 Resp 16 06/03/25 14:55 BP 151/100 H 06/03/25 14:55 Pulse Ox 97 06/03/25 14:55 O2 Del Method Room Air 06/03/25 14:55 BMI result Body Mass Index 26.6 Appearance: Alert. Oriented X3. No acute distress. Eyes: Pupils equal, round and reactive to light. ENT: Pharynx normal. Neck: Normal inspection. Neck supple. No lymph nodes noted. No crepitus CVS: Normal heart rate and rhythm. Pulses normal. Normal S1 and S2 Respiratory: No respiratory distress. Breath sounds normal. No Wheezing. No rales Abdomen: Soft and nontender. No rigidity. No distention. good BS x4 Skin: Skin warm and dry. Normal skin color. Normal skin turgor. Extremities: No lower extremity edema. Neurovascular intact to all extremities. No Lacerations. No Rash Neuro: Oriented X 3. No motor deficit. No sensory deficit. Moving all extermities. No slurred speech Course Course Course Narrative: RME, this is a rapid medical exam performed by Saul Meadows please refer to primary provider for complete H&P- 49 year old male presents for evaluation of chest pain for the last week and a half. Plan for cardiac workup with labs, ekg, chest x-ray Medical Decision Making Medical Decision Making MDM Narrative: Patient's chest pain atypical lasts a few sec. has no risk factors for PE. Patient's D-dimer was negative. In the setting of negative D-dimer low risk unlikely to have pulmonary emboli. Patient does have 1 big risk factor has a strong family history of coronary artery disease father had an CA in the 40s. However patient is enzymes are negative. His history is not consistent with ACS having chest pain that lasts a few sec. my interpretation of his EKG showed a sinus rhythm heart rate is 60 MN QRS QTC normal no acute ST segment elevation. Differential Diagnosis Differential Diagnoses: The differential diagnosis associated with the presentation includes Admission/Observation Consideration of admission/observation: Escalation of care including admission/observation considered Lab Data [facility] Lab Attestation statement: I reviewed the patient's lab results. 06/03/25 15:20 06/03/25 15:20 Labs: Lab Results 06/03/25 06/03/25 06/03/25 Range/Units 15:20 17:36 17:38 WBC 6.7 (4.8-10.8) X10*3/uL RBC 5.36 (4.60-5.80) X10*6/uL Hgb 15.7 (14.0-18.0) g/dl Hct 44.5 (42.0-52.0) % MCV 83.0 (80.0-98.0) fL MCH 29.3 (27.0-33.0) pg MCHC 35.3 (31.0-36.0) g/dl RDW 12.7 (11.0-16.0) % Plt Count 249 (160-400) X10*3/uL MPV 10.8 (9.4-12.4) fL Immature Gran % (Auto) 0.1 (0.0-0.4) % Neut % (Auto) 69.5 (45-73) % Lymph % (Auto) 22.5 (20-40) % [place] % (Auto) 6.6 (2-11) % Eos % (Auto) 0.7 (0-4) % Baso % (Auto) 0.6 (0-2) % Lymph # (Auto) 1.5 (1.2-4.9) X10*3/uL [place] # (Auto) 0.4 (0.1-1.2) X10*3/uL Eos # (Auto) 0.1 (0.0-0.4) X10*3/uL Baso # (Auto) 0.0 (0.0-0.2) X10*3/uL Abs Immat Gran (auto) 0.01 (0.00-0.03) X10*3/uL Absolute Neuts (auto) 4.7 (2.0-8.3) x10*3/uL Absolute Nucleated RBC 0.000 (0.0-0.012) X10*3/uL Nucleated RBC % (auto) 0.0 (0.0-0.2) /100WBC D-Dimer High Sensitivty < 150 NG/ML Sodium 140 (135-145) mmol/L Potassium 3.8 (3.3-5.1) mmol/L Chloride 106 (96-108) mmol/L Carbon Dioxide 26 (22-29) mmol/L Anion Gap 12 (12-20) BUN 15 (9-16) mg/dL Creatinine 1.02 (0.5-1.4) mg/dL Estim Creat Clear Calc 86.6 Estimated GFR > 60 Random Glucose 103 (60-115) mg/dL Calcium 9.5 D (8.4-10.2) mg/dL Magnesium 2.2 (1.6-2.6) mg/dL Total Bilirubin 0.4 (0.0-1.0) mg/dL AST 23 (5-37) U/L ALT 36 (0-40) U/L Alkaline Phosphatase 88 (39-117) U/L Troponin I High Sens < 2.7 < 2.7 (<3.5-35.0) ng/L B-Natriuretic Peptide < 10 (<100) pg/mL Total Protein 7.5 (6.5-8.0) g/dL Albumin 5.1 H (3.5-5.0) g/dL TSH 1.58 (0.32-4.0) uIU/mL Urine Color Yellow Urine Appearance Clear Urine pH 5.5 (5.0-9.0) Ur Specific [place] 1.010 (1.005-1.025) Urine Protein Negative (Neg-Trace) mg/dL Urine Glucose (UA) Negative (Negative) mg/dL Urine Ketones Negative (Negative) mg/dL Urine Blood Negative (Negative) Urine Nitrite Negative (Negative) Ur Leukocyte Esterase Negative (Negative) Ethyl Alcohol < 10 mg/dL Independent Interpretation I performed an independent interpretation of an: EKG (Sinus heart rate is 60 MN QRS QTC normal no acute ST segment elevation.) and Plain X-Ray (Chest x-ray negative for pneumonia pneumothorax.) External Record Review External record reviewed: Inpatient record Chronic Conditions Family history of CAD Social Determinants Patient?s care significantly limited by Social Determinants of Health including: Alcoholism and drug addiction in family and Problems related to primary support group Discharge Plan Discharge Clinical Impression: Chest pain Patient Disposition: Home, Self-Care Instructions: Chest Pain (DC) Prescriptions: No Action No Known Home Meds Referrals: Physician,Unknown J [Primary Care Provider, Medical] Jaswinder Humphreys MD [Physician, Cardiology] - 1 week Print Language: Tajik
[2025-06-03 15:23] LABS: MANUAL DIFF FLAG NO
[2025-06-03 15:25] LABS: Hematocrit 44.5 % (42.0-52.0); Hemoglobin 15.7 g/dl (14.0-18.0); Imm Gran Abs Auto 0.01 X10*3/uL (0.00-0.03); Imm Gran Pct Auto 0.1 % (0.0-0.4); Lymphocytes Absolute Auto 1.5 X10*3/uL (1.2-4.9); Mean Corpuscular HGB Conc 35.3 g/dl (31.0-36.0); Mean Corpuscular Hemoglobin 29.3 pg (27.0-33.0); Mean Corpuscular Volume 83.0 fL (80.0-98.0); NRBC Abs Auto 0.000 X10*3/uL (0.0-0.012); NRBC Pct Auto 0.0 /100WBC (0.0-0.2); Platelet Count 249 X10*3/uL (160-400); Red Blood Count 5.36 X10*6/uL (4.60-5.80); White Blood Count 6.7 X10*3/uL (4.8-10.8)
--- NOTE | 2025-06-03 15:38 | PC.NURSE ---
Xray staff alerted RN that pt ws clutching chest in Xray, repeat EKG ordered, triage tech to obtain fresh vitals at this time. GINO Hughes aware.
[2025-06-03 15:40] LABS: Alanine Aminotransferase 36 U/L (0-40); Albumin Level 5.1 g/dL (3.5-5.0); Alkaline Phosphatase 88 U/L (39-117); Anion Gap 12 (12-20); Aspartate Amino Transferase 23 U/L (5-37); Blood Urea Nitrogen 15 mg/dL (9-16); Calcium 9.5 mg/dL (8.4-10.2); Carbon Dioxide 26 mmol/L (22-29); Chloride 106 mmol/L (96-108); Creatinine Clr Calc Pharmacy 86.6; Estimated Glomerular Filt Rate > 60; Potassium 3.8 mmol/L (3.3-5.1); Sodium 140 mmol/L (135-145); Total Protein 7.5 g/dL (6.5-8.0)
[2025-06-03 15:46] LABS: B Type Natriuretic Peptide < 10 pg/mL (<100)
[2025-06-03 16:16] LABS: Troponin-I High Sensitivity < 2.7 ng/L (<3.5-35.0)
--- NOTE | 2025-06-03 16:21 | MHC.EDTECH ---
EKG documented for prior tech
[2025-06-03 17:02] LABS: Magnesium 2.2 mg/dL (1.6-2.6)
[2025-06-03 17:10] LABS: Thyroid Stimulating Hormone 1.58 uIU/mL (0.32-4.0)
[2025-06-03 17:48] LABS: Appearance Urine Clear; Glucose Urine UA Negative (Negative); PH 5.5 (5.0-9.0); Specific Gravity - Urine 1.010 (1.005-1.025)
[2025-06-03 18:05] LABS: D Dimer High Sensitivity < 150 NG/ML
[2025-06-03 18:12] LABS: Troponin-I High Sensitivity < 2.7 ng/L (<3.5-35.0)
[2025-06-03 19:11] VITALS: BP 120/85; PULSE 63; RESP 14; TEMP 36.8; O2SAT 99
[2025-06-03 19:28] VITALS: BP 120/85; PULSE 63; RESP 14; TEMP 36.8; O2SAT 99
== END 2025-06-03 19:29 | disposition home or self-care (01) ==
PROVIDERS: Emergency Provider Emergency Medicine Emergency Medical Services
DX: R07.9 Chest pain, unspecified (principal); R53.1 Weakness; R42 Dizziness and giddiness; G93.32 Myalgic encephalomyelitis/chronic fatigue syndrome
CPT/HCPCS: 36415; 71046; 80053; 80307; 81003; 83735; 83880; 84443; 84484; 85025; 85379; 93005; 99284

== ENCOUNTER → 2025-06-03 14:43 | Outpatient (BNV) | payer OTHER, SELFPAY | PROVIDERS: Emergency Provider Emergency Medicine Emergency Medical Services; Visit Provider Internal Medicine Cardiovascular Disease | DX: R94.31 Abnormal electrocardiogram [ECG] [EKG] (principal); R07.89 Other chest pain | CPT/HCPCS: 93010 ==